=== PATIENT | male | born 1940 | race Caucasian/White ===

== ENCOUNTER 2017-11-12 15:32 | Emergency (ER) | payer MEDICARE, BC ==
[~2017-11-12] VITALS: Ht 175.3 cm; Wt 74.4 kg
[~2017-11-12 15:32] MED LIST: HYDROCODONE-AP1 EAC6 PO; IBUPROFEN 800800 M1 PO; METFORMIN HCL500 MG PO; OXYBUTYNIN 5 MG5 M2 PO; PRILOSEC 10MG C10 MG PO; PROSCAR 5MG TABL5 MG PO; ROBAXIN 750 MG750 M1 PO; ZOCOR20 MG PO
[2017-11-12 15:42] VITALS: BP 145/69
[2017-11-12] MEDS ORDERED: KEFLEX500 M2 PO (16:13)
[2017-11-12] MEDS ORDERED: TRIPLE ANTIB28.35 GM TOP (16:14)
== END 2017-11-12 16:35 | disposition home or self-care (01) ==
LOC: M.ERS 15:32
DX: S61.411A Laceration without foreign body of right hand, initial encounter (principal); S51.012A Laceration without foreign body of left elbow, initial encounter; E11.9 Type 2 diabetes mellitus without complications; Z87.442 Personal history of urinary calculi; Z88.2 Allergy status to sulfonamides; W01.0XXA Fall on same level from slipping, tripping and stumbling without subsequent striking against object, initial encounter; Y93.9 Activity, unspecified; Y92.89 Other specified places as the place of occurrence of the external cause; Y99.8 Other external cause status

== ENCOUNTER 2018-03-17 13:45 | Emergency (ER) | payer MEDICARE, BC ==
[~2018-03-17] VITALS: Ht 175.3 cm; Wt 77.1 kg
[~2018-03-17 13:45] MED LIST changes: +KEFLEX500 M2 PO; +TRIPLE ANTIB28.35 GM TOP
[2018-03-17] MEDS ORDERED: ZANTAC 150MG T150 MG PO (14:41)
[2018-03-17 15:03] LABS: ABSOLUTE EOSINOPHILS 0.2 thou/uL (0.0-0.7); ABSOLUTE LYMPHOCYTES 1.4 thou/uL (0.8-5.3); ABSOLUTE MONOCYTES 0.6 thou/uL (0.0-1.2); ABSOLUTE NEUTROPHILS 5.4 thou/uL (1.6-8.1); BASOPHILS 0.5 %; EOSINOPHILS 2.7 %; HEMATOCRIT 36.9 % (42.0-52.0); HEMOGLOBIN 12.5 gm/dL (14.0-18.0); LYMPHOCYTES 18.4 %; MCH 32.6 pg (26.0-34.0); MCHC 33.9 g/dL (28.0-37.0); MCV 96.1 fL (80.0-100.0); MONOCYTES 7.8 %; MPV 7.5 fl. (7.2-11.1); NUCLEATED RBCS 0 /100WBC; PLATELET COUNT* 269 thou/uL (150-400); POLYS 70.6 %; RBC 3.84 mil/uL (4.50-6.00); RDW-CV 14.3 % (10.5-14.5); WBC 7.6 thou/uL (4.0-11.0)
[2018-03-17 15:07] LABS: ANION GAP 8 mmol/L (7-16); BUN 17 mg/dL (7-18); CALCIUM 8.7 mg/dL (8.5-10.1); CHLORIDE 102 mmol/L (98-107); CO2 25 mmol/L (21-32); CREATININE 1.4 mg/dL (0.6-1.3); GLUCOSE 224 mg/dL (70-99); SODIUM 135 mmol/L (136-145)
[2018-03-17 15:20] LABS: ALBUMIN 3.6 g/dL (3.4-5.0); ALKALINE PHOSPHATASE 102 U/L (46-116); SGOT 16 U/L (15-37); SGPT 27 U/L (30-65); TOTAL BILIRUBIN 0.2 mg/dL (<0.1-1.0); TOTAL PROTEIN 6.9 g/dL (6.4-8.2); TROPONIN-I LEVEL <0.06 ng/mL (<0.06)
[2018-03-17] MEDS ORDERED: ROBAXIN 750 MG750 M1 PO (15:20)
[2018-03-17 15:43] VITALS: BP 142/67
--- NOTE | 2018-03-17 16:46 | EKG ---
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
== END 2018-03-17 15:44 | disposition home or self-care (01) ==
LOC: M.ERS 13:45
PROVIDERS: Nurse Practitioner Family
DX: M54.42 Lumbago with sciatica, left side (principal); R07.89 Other chest pain; M53.3 Sacrococcygeal disorders, not elsewhere classified; E11.9 Type 2 diabetes mellitus without complications; Z88.2 Allergy status to sulfonamides; Z87.442 Personal history of urinary calculi

== ENCOUNTER 2018-03-27 06:23 | Emergency (ER) | payer MEDICARE, BC ==
[~2018-03-27] VITALS: Ht 175.3 cm; Wt 77.1 kg
[~2018-03-27 06:23] MED LIST changes: +ZANTAC 150MG T150 MG PO
[2018-03-27 06:49] LABS: ABSOLUTE EOSINOPHILS 0.2 thou/uL (0.0-0.7); ABSOLUTE MONOCYTES 0.4 thou/uL (0.0-1.2); ABSOLUTE NEUTROPHILS 4.8 thou/uL (1.6-8.1); BASOPHILS 0.6 %; EOSINOPHILS 2.5 %; HEMATOCRIT 34.9 % (42.0-52.0); HEMOGLOBIN 11.7 gm/dL (14.0-18.0); LYMPHOCYTES 15.2 %; MCH 32.4 pg (26.0-34.0); MCHC 33.7 g/dL (28.0-37.0); MCV 96.1 fL (80.0-100.0); MPV 6.9 fl. (7.2-11.1); NUCLEATED RBCS 0 /100WBC; PLATELET COUNT* 287 thou/uL (150-400); POLYS 74.7 %; RBC 3.63 mil/uL (4.50-6.00); RDW-CV 14.1 % (10.5-14.5); WBC 6.4 thou/uL (4.0-11.0)
[2018-03-27 06:58] LABS: ANION GAP 9 mmol/L (7-16); BUN 15 mg/dL (7-18); CALCIUM 8.6 mg/dL (8.5-10.1); CHLORIDE 104 mmol/L (98-107); CO2 26 mmol/L (21-32); CREATININE 1.4 mg/dL (0.6-1.3); GLUCOSE 111 mg/dL (70-99); POTASSIUM 4.1 mmol/L (3.5-5.1); SODIUM 139 mmol/L (136-145)
[2018-03-27 07:03] LABS: INR 0.9; PROTIME 9.7 Seconds (9.20-11.50)
[2018-03-27 07:09] LABS: ALBUMIN 3.4 g/dL (3.4-5.0); ALKALINE PHOSPHATASE 97 U/L (46-116); NT-PRO BRAIN NAT PEPTIDE 66 pg/mL (<300); SGOT 13 U/L (15-37); SGPT 20 U/L (30-65); TOTAL BILIRUBIN 0.2 mg/dL (<0.1-1.0); TOTAL PROTEIN 6.8 g/dL (6.4-8.2); TROPONIN-I LEVEL <0.06 ng/mL (<0.06)
[2018-03-27 07:14] LABS: URINE BILIRUBIN NEGATIVE (Negative); URINE BLOOD NEGATIVE (Negative); URINE CLARITY CLEAR; URINE COLOR YELLOW; URINE GLUCOSE-RANDOM NEGATIVE (Negative); URINE KETONES NEGATIVE (Negative); URINE LEUKOCYTES-REFLEX NEGATIVE (Negative); URINE NITRITE-REFLEX NEGATIVE (Negative); URINE PROTEIN NEGATIVE (Negative); URINE SPECIFIC GRAVITY >= 1.030 (1.005-1.030); URINE UROBILINOGEN 0.2 E.U./dl (0.2-1.0)
[2018-03-27] MEDS ORDERED: HYDROCODONE-AP1 EAC6 PO (07:37)
[2018-03-27] MEDS ORDERED: PREDNISONE50 MG PO (07:37)
[2018-03-27 07:48] VITALS: BP 124/89
--- NOTE | 2018-03-27 09:41 | EKG ---
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 TAPIA : 1940 Requested By: Malachi Urbina Order Number: [id number] MD: Byron Rosales Measurements Intervals [place] Rate: 68 P: 41 [place]: 124 QRS: 74 QRSD: 104 T: 49 QT: 379 QTc: 404 Interpretive Statements Sinus rhythm Atrial premature complexes Compared to ECG 03/17/2018 14:37:20 Atrial premature complex(es) now present pvc no longer seen Electronically Signed On 03-27-2018 9:40:59 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
== END 2018-03-27 07:48 | disposition home or self-care (01) ==
LOC: M.ERS 06:23
PROVIDERS: Family Medicine
DX: R42 Dizziness and giddiness (principal); T48.1X5A Adverse effect of skeletal muscle relaxants [neuromuscular blocking agents], initial encounter; E11.9 Type 2 diabetes mellitus without complications; Z87.442 Personal history of urinary calculi; Z88.2 Allergy status to sulfonamides; Y92.89 Other specified places as the place of occurrence of the external cause

== ENCOUNTER 2020-09-14 18:50 | Emergency (ER) | payer MEDICARE, BC ==
[~2020-09-14] VITALS: Ht 175.3 cm; Wt 79.4 kg
[~2020-09-14 18:50] MED LIST changes: +EZALLOR SPRINKLE5 MG PO; +FLOMAX0.4 MG PO; +GLIMEPIRIDE4 MG PO; +NAPROSYN500 MG PO; +PREDNISONE50 MG PO
[2020-09-14] MEDS ORDERED: NAPROSYN500 M1 PO (21:26)
[2020-09-14 21:51] VITALS: BP 134/98
== END 2020-09-14 21:51 | disposition home or self-care (01) ==
LOC: M.ERS 18:50
DX: S93.491A Sprain of other ligament of right ankle, initial encounter (principal); S30.0XXA Contusion of lower back and pelvis, initial encounter; E11.9 Type 2 diabetes mellitus without complications; Z87.442 Personal history of urinary calculi; W10.8XXA Fall (on) (from) other stairs and steps, initial encounter; Y93.89 Activity, other specified; Y92.89 Other specified places as the place of occurrence of the external cause; Y99.8 Other external cause status

== ENCOUNTER 2020-10-22 21:55 | Emergency (ER) | payer MEDICARE, BC ==
[~2020-10-22] VITALS: Ht 175.3 cm; Wt 87.0 kg
[~2020-10-22 21:55] MED LIST changes: +NAPROSYN500 M1 PO
[2020-10-23 01:15] VITALS: BP 144/74
--- NOTE | 2020-10-23 10:50 | EKG ---
[place] [address] ELECTROCARDIOGRAM REPORT Name: ZULEYMA WARREN Room: [facility]#: [id number] Admission: 10/22/20 Attend Phys: Discharge: 10/23/20 Date of : 40 Date of Service: 10/22/202202 Report #: [id number] THIS REPORT FOR: //name// [facility] ED Test Date: 2020-10-22 Test Time: 22:03:05 Pat Name: ZULEYMA WARREN Department: Room: Gender: Cork Sorter: : 1940 Requested By: Johanny Mendoza Order Number: [id number] MD: Byron Rosales Measurements Intervals [place] Rate: 83 P: 72 OR: 173 QRS: 80 QRSD: 144 T: 34 QT: 396 QTc: 466 Interpretive Statements Sinus rhythm Right bundle branch block Compared to ECG 03/27/2018 07:00:04 Atrial premature complex(es) no longer present Electronically Signed On 10-23-2020 10:49:51 CDT by Byron Rosales [email or web address] <ELECTRONICALLY SIGNED> By: Byron Rosales MD, [facility] 10/23/20 1049 02 02 Byron Rosales MD, [facility] /EPI
== END 2020-10-23 01:15 | disposition home or self-care (01) ==
LOC: M.ERS 21:55
DX: S01.81XA Laceration without foreign body of other part of head, initial encounter (principal); E11.9 Type 2 diabetes mellitus without complications; Z98.890 Other specified postprocedural states; Z87.442 Personal history of urinary calculi; Z79.899 Other long term (current) drug therapy; Z79.84 Long term (current) use of oral hypoglycemic drugs; Z88.2 Allergy status to sulfonamides; W18.31XA Fall on same level due to stepping on an object, initial encounter; Y93.89 Activity, other specified; Y92.89 Other specified places as the place of occurrence of the external cause; Y99.8 Other external cause status

== ENCOUNTER 2020-10-30 10:11 | Emergency (ER) | payer MEDICARE, BC ==
[~2020-10-30] VITALS: Ht 175.3 cm; Wt 77.1 kg
[2020-10-30 10:15] VITALS: BP 158/76
== END 2020-10-30 11:07 | disposition home or self-care (01) ==
LOC: M.ERS 10:11
DX: S01.111D Laceration without foreign body of right eyelid and periocular area, subsequent encounter (principal); E11.9 Type 2 diabetes mellitus without complications; Z87.442 Personal history of urinary calculi; Z98.890 Other specified postprocedural states; Z79.899 Other long term (current) drug therapy; Z88.2 Allergy status to sulfonamides; X58.XXXD Exposure to other specified factors, subsequent encounter

== ENCOUNTER 2021-02-12 14:52 | Emergency (ER) | payer MEDICARE, BC ==
[~2021-02-12] VITALS: Ht 175.3 cm; Wt 74.8 kg
[2021-02-12 16:16] LABS: INFLUENZA A ANTIGEN Negative (Negative); INFLUENZA B ANTIGEN Negative (Negative)
[2021-02-12 17:50] LABS: URINE BLOOD TRACE (Negative); URINE CLARITY CLEAR; URINE COLOR YELLOW; URINE GLUCOSE-RANDOM 1+ (Negative); URINE KETONES TRACE (Negative); URINE LEUKOCYTES NEGATIVE (Negative); URINE NITRITE NEGATIVE (Negative); URINE PROTEIN 3+ (Negative); URINE SPECIFIC GRAVITY >= 1.030 (1.005-1.030)
[2021-02-12 17:59] LABS: ICTOTEST (BILI CONFIRMATORY) Negative (Negative); URINE BILIRUBIN 1+ (Negative)
[2021-02-12 18:00] LABS: HYALINE CASTS 4-10 Moderate /LPF (None Seen); SQUAMOUS 0-3 Few /LPF (0-3)
[2021-02-12 18:01] LABS: CRYSTALS None Seen /LPF (None Seen); MUCUS 4-6 Moderate strn/LPF (None Seen); URINE WBC 0-5 Rare /HPF (0-5)
[2021-02-12 18:02] LABS: BACTERIA 1-9 Few /HPF (None Seen); URINE RBC 0-2 Rare /HPF (0-2)
[2021-02-12 18:11] LABS: ABSOLUTE LYMPHOCYTES 0.6 thou/uL (0.8-5.3); ABSOLUTE MONOCYTES 0.3 thou/uL (0.0-1.2); ABSOLUTE NEUTROPHILS 2.4 thou/uL (1.6-8.1); BASOPHILS 0.3 %; EOSINOPHILS 0.7 %; HEMATOCRIT 35.4 % (42.0-52.0); HEMOGLOBIN 11.9 gm/dL (14.0-18.0); LYMPHOCYTES 17.7 %; MCH 32.5 pg (26.0-34.0); MCHC 33.7 g/dL (28.0-37.0); MCV 96.5 fL (80.0-100.0); MONOCYTES 10.3 %; MPV 7.3 fl. (7.2-11.1); NUCLEATED RBCS 0 /100WBC; PLATELET COUNT* 252 thou/uL (150-400); RBC 3.67 mil/uL (4.50-6.00); RDW-CV 14.4 % (10.5-14.5); WBC 3.3 thou/uL (4.0-11.0)
[2021-02-12 18:19] LABS: CALCIUM 8.6 mg/dL (8.5-10.1); CREATININE 1.4 mg/dL (0.6-1.3); POTASSIUM 3.4 mmol/L (3.5-5.1)
[2021-02-12 18:23] LABS: ALBUMIN 2.9 g/dL (3.4-5.0); TOTAL BILIRUBIN 0.5 mg/dL (<0.1-1.0)
[2021-02-12] MEDS ORDERED: TESSALON PERLE100 MG PO (19:00)
[2021-02-12] MEDS ORDERED: MEDROLDOSEPACK PO (19:00)
[2021-02-12] MEDS ORDERED: PROAIR HFA8.5 GM INH (19:00)
[2021-02-12 19:09] VITALS: BP 157/63
== END 2021-02-12 19:10 | disposition home or self-care (01) ==
LOC: M.ERS 14:52
PROVIDERS: Nurse Practitioner Family; Physician Assistant
DX: J06.9 Acute upper respiratory infection, unspecified (principal); Z20.822 Contact with and (suspected) exposure to COVID-19; R10.32 Left lower quadrant pain; R19.7 Diarrhea, unspecified; E11.9 Type 2 diabetes mellitus without complications; R11.10 Vomiting, unspecified; Z98.890 Other specified postprocedural states; Z87.442 Personal history of urinary calculi; Z79.899 Other long term (current) drug therapy; Z88.2 Allergy status to sulfonamides